=== PATIENT | male | born 1940 | race Caucasian/White ===

== ENCOUNTER 2024-03-10 05:16 | Emergency (ER) | payer MEDICARE, OTHER ==
[~2024-03-10] VITALS: Ht 180.3 cm; Wt 91.0 kg
[2024-03-10] VITALS (10 sets, daily range): BP systolic 102–130; BP diastolic 61–87
[2024-03-10] MEDS ORDERED: COZAAR25 MG PO (05:41)
[2024-03-10] MEDS ORDERED: ATORVASTATIN CA20 MG PO (05:41)
[2024-03-10] MEDS ORDERED: SODIUM CHLORIDE 0.9% 1,000 ML IV STA (05:48)
[2024-03-10] MEDS ORDERED: Pantoprazole Sodium 40 MG VIAL (Protonix) IV STA (05:48)
[2024-03-10] MEDS ORDERED: ONDANSETRON HCl 4 MG/2 ML SDV IV STA (05:48)
[2024-03-10] MEDS ORDERED: KETOROLAC TROMETHAMINE 30 MG/ML SDV IV ONE (05:50)
[2024-03-10] MEDS ORDERED: ALUM & MAG HYDROX-SIMETHICONE 30 ML PO ONE (05:50)
[2024-03-10 06:05] LABS: BASO% 0.7 % (0-3); EOS% 8.1 % (0-8); HEMATOCRIT 36.6 % (39.0-50.0); HEMOGLOBIN 12.5 g/dl (14.0-18.0); IMMATURE GRANULOCYTES 0.5 % (0.0-5.0); LYMPH% 21.2 % (15-41); MEAN CELL VOLUME 88.2 fL CALC (80.0-100.0); MEAN CORPUSCULAR HGB 30.1 pG CALC (26.0-32.0); MEAN CORPUSCULAR HGB CONC 34.2 g/dL CAL (32.0-36.0); MONO% 6.5 % (2-13); NEUT# 5.78 thou/uL (1.82-7.42); RED BLOOD COUNT 4.15 mill/uL (4.70-6.10)
[2024-03-10 06:19] LABS: ALBUMIN 4.7 g/dL (3.2-5.0); BILIRUBIN, TOTAL 1.4 mg/dL (0.2-1.3); CREATININE 1.3 mg/dL (0.7-1.3); TOTAL PROTEIN 7.6 g/dL (6.3-8.2)
[2024-03-10 08:38] LABS: URINE BLOOD DIPSTICK Moderate (NEGATIVE); URINE GLUCOSE - DIPSTICK Negative (NEGATIVE); URINE KETONE Negative (NEGATIVE); URINE LEUK ESTERASE Negative (NEGATIVE); URINE NITRITE - DIPSTICK Negative (Negative); URINE PROTEIN - DIPSTICK Trace mg/dL (NEG-TRACE); URINE UROBILINOGEN - DIPSTICK 0.2 E.U./dL (0.2)
[2024-03-10 08:39] LABS: URINE COLOR Yellow; URINE MUCUS MANY hpf (NONE-FEW)
== END 2024-03-10 09:31 | disposition home or self-care (01) ==
LOC: ED 05:16
PROVIDERS: Family Medicine
DX: K81.0 Acute cholecystitis (principal); I10 Essential (primary) hypertension; R73.03 Prediabetes; Z79.85 Long-term (current) use of injectable non-insulin antidiabetic drugs
CPT/HCPCS: J2470

== ENCOUNTER 2024-03-10 11:50 | Emergency (ER) | payer MEDICARE, OTHER ==
[~2024-03-10] VITALS: Ht 180.3 cm; Wt 90.7 kg
[~2024-03-10 11:50] MED LIST: ATORVASTATIN CA20 MG PO; COZAAR25 MG PO
[2024-03-10 11:57] VITALS: BP 131/79
[2024-03-10 12:00] VITALS: BP 113/61
[2024-03-10] MEDS ORDERED: PIPERACILLIN Sodium-Tazobactam 3.375 GM in SODIUM CHLORIDE 0.9% 100 ML IV ONE (12:00)
[2024-03-10] MEDS ORDERED: SODIUM CHLORIDE 0.9% 1,000 ML IV ONE (12:00)
[2024-03-10] MEDS ORDERED: KETOROLAC TROMETHAMINE 15 MG/ML SDV IV ONE (12:05)
[2024-03-10 12:21] VITALS: BP 120/68
[2024-03-10 12:30] VITALS: BP 118/68
[2024-03-10 13:01] VITALS: BP 118/68
== END 2024-03-10 13:02 | disposition short-term general hospital (02) ==
LOC: ED 11:50
DX: K81.0 Acute cholecystitis (principal); I10 Essential (primary) hypertension; R73.03 Prediabetes; R10.9 Unspecified abdominal pain; R10.11 Right upper quadrant pain; R11.0 Nausea; Z79.85 Long-term (current) use of injectable non-insulin antidiabetic drugs
CPT/HCPCS: J2470

== ENCOUNTER 2024-09-11 12:18 | Emergency (ER) | payer MEDICARE, OTHER ==
[~2024-09-11] VITALS: Ht 180.3 cm; Wt 90.7 kg
[2024-09-11] VITALS (8 sets, daily range): BP systolic 131–165; BP diastolic 68–87
[2024-09-11] MEDS ORDERED: ASPIRIN 81 MG/TAB PO ONE (12:25)
[2024-09-11 12:46] LABS: BASO% 0.5 % (0-3); EOS% 1.8 % (0-8); HEMATOCRIT 39.4 % (39.0-50.0); HEMOGLOBIN 13.4 g/dl (14.0-18.0); IMMATURE GRANULOCYTES 0.4 % (0.0-5.0); LYMPH% 25.8 % (15-41); MEAN CELL VOLUME 88.9 fL CALC (80.0-100.0); MEAN CORPUSCULAR HGB 30.2 pG CALC (26.0-32.0); MONO% 6.5 % (2-13); NEUT# 4.73 thou/uL (1.82-7.42); RED BLOOD COUNT 4.43 mill/uL (4.70-6.10); RED CELL DISTRI WIDTH 13.2 % (11.5-15.5)
[2024-09-11 12:56] LABS: ALBUMIN 4.4 g/dL (3.2-5.0); CREATININE 1.1 mg/dL (0.7-1.3); POTASSIUM 4.6 mmol/l (3.5-5.1); TOTAL PROTEIN 7.4 g/dL (6.3-8.2)
[2024-09-11 12:57] LABS: BILIRUBIN, TOTAL 0.6 mg/dL (0.2-1.3)
[2024-09-11] MEDS ORDERED: Heparin SODIUM (Porcine) 5,000 UNITS/ML SDV IV ONE (13:15)
[2024-09-11] MEDS ORDERED: Heparin SODIUM (Porcine) 500 ML IV ONE (13:15)
[2024-09-11] MEDS ORDERED: NITROGLYCERIN IN D5W 250 ML IV ONE (13:15)
[2024-09-11] MEDS ORDERED: SODIUM CHLORIDE 0.9% 250 ML IV ONE (13:15)
[2024-09-11 14:01] LABS: ACT PARTIAL THROMBO TIME 24.4 SECONDS (20.0-32.5); INTERNATIONAL NORMALIZED RATIO 0.9 RATIO (0.7-1.3)
[2024-09-11 14:03] LABS: PROTHROMBIN TIME 9.9 SECONDS (9.0-12.5)
== END 2024-09-11 15:00 ==
LOC: ED 12:18
PROVIDERS: Family Medicine; Nurse Practitioner
DX: I21.4 Non-ST elevation (NSTEMI) myocardial infarction (principal); I10 Essential (primary) hypertension; R73.03 Prediabetes; I71.20 Thoracic aortic aneurysm, without rupture, unspecified; I71.40 Abdominal aortic aneurysm, without rupture, unspecified
CPT/HCPCS: J1644; J2305